=== PATIENT | female | born 2000 | race Caucasian/White ===

== ENCOUNTER 2022-05-24 06:33 | Day surgery (SDC) | payer OTHER ==
[~2022-05-24] VITALS: Ht 170.2 cm; Wt 80.5 kg
[~2022-05-24 06:33] MED LIST: ceFAZolin SOD 2 GM in IV 1 EA IV ONE
[2022-05-24] MEDS ORDERED: LR 1,000 ML IV SCH ×2 (07:40→10:30)
[2022-05-24] MEDS ORDERED: propofoL 200 MG/20 ML VIAL As Ordered ONE (08:04)
[2022-05-24] MEDS ORDERED: ONDANSETRON 4MG 2ML VIAL As Ordered ONE (08:04)
[2022-05-24] MEDS ORDERED: LIDOCAINE 2% 100MG/5ML SDV (FOR ANES.) As Ordered ONE (08:04)
[2022-05-24] MEDS ORDERED: fentaNYL 250 MCG/5 ML INJECTION As Ordered ONE (08:05)
[2022-05-24] MEDS ORDERED: MIDAZOLAM INJ 2MG/2ML VIAL As Ordered ONE (08:05)
[2022-05-24] MEDS ORDERED: SCOPOLAMINE 1MG TRANSDERMAL PATCH TOP ONE (08:20)
[2022-05-24] MEDS ORDERED: BUPIVACAINE HCL 0.25% 10ML VIAL As Ordered ONE (08:44)
[2022-05-24] MEDS ORDERED: GENTAMICIN SULF 80MG/2ML VIAL As Ordered ONE (08:44)
[2022-05-24] MEDS ORDERED: BUPIVACAINE LIPOSOME/PF 1.3% 20ML VIAL (13.3MG/ML)(EXPAREL) As Ordered ONE (08:44)
[2022-05-24] MEDS ORDERED: ACETAMINOPHEN 1000MG 100ML IV BAG As Ordered ONE (09:17)
[2022-05-24] MEDS ORDERED: HYDROmorphone HCL 2MG/ML 1ML VIAL As Ordered ONE (09:47)
[2022-05-24] MEDS ORDERED: fentaNYL 100 MCG/2 ML INJECTION IV PRN (10:30)
[2022-05-24] MEDS ORDERED: ONDANSETRON 4MG 2ML VIAL IV PRN (10:30)
[2022-05-24] MEDS ORDERED: HYDROMORPHONE HCL 0.5 MG/ 0.5 ML SYRINGE IV PRN (10:30)
[2022-05-24] MEDS ORDERED: OXYC1TAB23 PO (10:38)
[2022-05-24] MEDS: oxyCODONE 5MG TAB PO PRN ×2 (10:46→11:34)
[2022-05-24 12:45] VITALS: BP 110/72
== END 2022-05-24 12:55 | disposition home or self-care (01) ==
LOC: M SDC 06:33
PROVIDERS: ATTEND Plastic Surgery Surgery of the Hand
DX: N60.31 Fibrosclerosis of right breast (principal); N64.82 Hypoplasia of breast; G43.909 Migraine, unspecified, not intractable, without status migrainosus
CPT/HCPCS: 19357; 81025; C1789; C9290; J0131; J0690; J1100; J1170; J1580; J2250; J2405; J3010; S0020